=== PATIENT | male | born 1955 | race Caucasian/White ===

== ENCOUNTER → 2018-06-08 | Outpatient (CLI) | payer OTHER | LOC: FCPNEURO 06-05 23:11 | PROVIDERS: ATTEND Psychiatry & Neurology Sleep Medicine | DX: G47.31 Primary central sleep apnea (principal); G47.33 Obstructive sleep apnea (adult) (pediatric) ==

== ENCOUNTER 2018-06-09 11:00 | Emergency (ER) | payer OTHER ==
--- NOTE | 2018-06-09 11:19 | EDPHY ---
H & P Stated Complaint: Fell; landed on back;hit hit; No LOC On eliquis Time Seen by Provider: 06/09/18 11:09 HPI/ROS: CHIEF COMPLAINT: Head injury mechanical fall HISTORY OF PRESENT ILLNESS: 63-year-old male history of daily Eliquis use secondary to atrial fibrillation, arrives via private vehicle. Patient was standing on a counter, painting a wall when he stepped into a sink and fell backward impacting his occipital head against a countertop as well as impacting his left elbow/forearm and impacting his posterior ribs. No loss of consciousness. No alcohol or drug use. No midline C-spine pain. No peripheral paresthesia, weakness, numbness. No chest pain. No dyspnea. No abdominal pain or trauma. PRIMARY CARE PROVIDER: REVIEW OF SYSTEMS: 10 systems reviewed and negative with the exception of the elements mentioned in the history of present illness PAST MEDICAL/SURGICAL HISTORY: Daily Eliquis secondary to atrial fibrillation history. SOCIAL HISTORY: denies alcohol use at time of incident PHYSICAL EXAM 1) GENERAL: Well-developed, well-nourished, alert and oriented. Appears to be in no acute distress. Answering questions appropriately. 2) HEAD: Normocephalic, occipital hematoma and abrasion. No laceration 3) HEENT: Pupils equal, round, reactive to light bilaterally. Negative Horners. Nasopharynx, oropharynx, clear. No deformity or angulation of nose. No septal hematoma. No rhinorrhea. No oral trauma. Ears bilaterally with normal tympanic membranes. No hemotympanum. No fluid or blood in the external auditory canal. No raccoon eyes. No Deal sign. Teeth are normally aligned with no gross malocclusion, TMJ bilaterally nontender, facial bones nontender including the zygomatic arch, maxilla mandible. 4) NECK: No cervical collar is on. Posterior cervical spine is nontender, no stepoff, no effusion. Full range of motion which does not elicit any midline cervical spine pain, no posterior midline tenderness, no step-off. 5) LUNGS: Clear to auscultation bilaterally, no wheezes, no rhonchi, no retractions. No obvious signs of trauma. No chest wall pain. No flaring, no grunting. Moving symmetrically. No crepitus. 6) HEART: [Regular rate and rhythm, 7) ABDOMEN: No guarding, no rebound, no focal tenderness, no peritoneal signs, no signs of trauma, no ecchymosis 8) MUSCULOSKELETAL: Left upper extremity: Pain to the dorsal elbow with no visible signs of trauma. No radial head pain. Full range of motion albeit with some pain to the dorsal aspect of extremes of flexion. Proximally distally nontender. Soft compartments. Neurovascular status is normal distally with brisk pulses and brisk capillary refill. Otherwise, Moving all extremities, no focal areas of tenderness, no obvious trauma. 9) BACK: No midline vertebral tenderness, no fluctuance, no step-off, no obvious trauma, no visual or palpable abnormality. Mild pain with inspiration to the posterior lower ribs. 10) SKIN: No laceration. 11) NEURO: Awake, alert, and oriented to person, place and time. Answers questions appropriately. There were no obvious focal neurologic abnormalities. No cerebellar dysfunction. Cranial nerves 2 through to 12 intact. Normal steady gait. Upper and lower extremities bilaterally with strength 5 / 5, reflexes 2+. DIFFERENTIAL DIAGNOSIS: Not necessarily in any particular order, my differential diagnosis includes, but is not limited to, concussion, skull fracture, intraparenchymal contusion, subarachnoid, subdural and epidural hematoma. The patient understands that this diagnosis is provisional and can never be 100% accurate. - Personal History Current Tetanus Diphtheria and Acellular Pertussis (TDAP): Yes Tetanus Vaccine Date: 2013 - Medical/Surgical History Hx Asthma: No Hx Chronic Respiratory Disease: No Hx Diabetes: No Hx Cardiac Disease: Yes Hx Renal Disease: No Hx Cirrhosis: No Hx Alcoholism: No Hx HIV/AIDS: No Hx Splenectomy or Spleen Trauma: No Other PMH: afib, hypertension, colon cancer in remission, inguinal hernia repair , partial colectomy - Social History Smoking Status: Former smoker Constitutional: Initial Vital Signs Temperature (C) 36.8 C 06/09/18 11:05 Heart Rate 78 06/09/18 11:05 Respiratory Rate 16 06/09/18 11:05 Blood Pressure 147/91 H 06/09/18 11:05 O2 Sat (%) 97 06/09/18 11:05 O2 Delivery Mode Room Air Allergies/Adverse Reactions: No Known Allergies Allergy (Verified 06/09/18 11:03) Home Medications: Medication Instructions Recorded Apixaban [Eliquis] 5 mg PO BID #60 tab 07/05/14 Cyclobenzaprine [Flexeril 10 MG 10 mg PO TID #7 tab 06/09/18 (RX)] Diltiazem HCl [Diltiazem ER] 180 mg PO 06/09/18 Levothyroxine [Synthroid 125 mcg 125 mcg PO DAILY06 06/09/18 (*)] Lisinopril [Zestril 20 mg (*)] 20 mg PO 06/09/18 Medical Decision Making - Diagnostics Imaging Results: Imaging Impressions Head CT 06/09/18 11:14 Impression: 1. No acute intracranial process. 2. Subgaleal hematoma posteriorly. 3. Paranasal sinus disease. Findings and recommendations discussed with Matt Long at 1137 hour, . Chest X-Ray 06/09/18 11:15 Impression: 1. No acute cardiopulmonary process. 2. Numerous thoracic vertebral bodies demonstrate loss of height, likely chronic. There is mild irregularity of a lower thoracic vertebral body, likely T11 or T12 also favored to be chronic and partially related to summation artifact. Recommend correlation with point tenderness. Elbow X-Ray 06/09/18 11:15 Impression: Negative. No acute fracture or effusion. Images reviewed myself ED Course/Re-evaluation: 11:16 a.m.: Head CT ordered in this patient for trauma for the following indication: Anticoagulated, fall greater than 3 feet. Will also obtain x-ray of the left elbow and chest x-ray. Care of patient under supervision of secondary supervising physician Dr Celis with whom I discussed case. 12:02 p.m.: Re-evaluation. Discussed with patient's negative imaging results. He is answering questions appropriately. He remains with a nonfocal neurologic examination. Plan will be discharge home with my usual and customary head injury precautions instructions. All questions and concerns addressed by myself. He feels comfortable being discharged. Departure - Departure Disposition: Home, Routine, Self-Care Clinical Impression: Head injury due to trauma Qualifiers: Encounter type: initial encounter Qualified Code(s): S09.90XA - Unspecified injury of head, initial encounter Condition: Good Instructions: Head Injury (ED) Additional Instructions: ALTHOUGH THERE IS NO EVIDENCE OF SERIOUS HEAD INJURY AT THIS TIME, DELAYED SIGNS CAN APPEAR 24 TO 48 HOURS AFTER INJURY. PLEASE RETURN TO THE EMERGENCY DEPARTMENT (ED) IMMEDIATELY IF YOU HAVE INCREASED HEADACHE, PERSISTENT HEADACHE , VOMITING, WEAKNESS, CONFUSION OR VISUAL PROBLEMS. WE RECOMMEND THAT YOU DO NOT RESUME CONTACT SPORTS OR ACTIVITIES THAT TAKE COORDINATION OR BALANCE SUCH SKIING OR RIDING A BICYCLE UNTIL CLEARED TO DO SO BY YOUR DOCTOR OR BY A NEUROLOGIST. Referrals: Myrna Pacheco MD [Medical Doctor] - 2-3 days, call for appt. Stand Alone Forms: Work Comp Follow Up Prescriptions: Cyclobenzaprine [Flexeril 10 MG (RX)] 10 mg PO TID #7 tab
[2018-06-09 12:21] VITALS: BP 139/93
== END 2018-06-09 12:19 | disposition home or self-care (01) ==
DX: S00.03XA Contusion of scalp, initial encounter (principal); S59.902A Unspecified injury of left elbow, initial encounter; S29.9XXA Unspecified injury of thorax, initial encounter; I48.91 Unspecified atrial fibrillation; I10 Essential (primary) hypertension; J32.9 Chronic sinusitis, unspecified; C18.9 Malignant neoplasm of colon, unspecified; Z90.49 Acquired absence of other specified parts of digestive tract; Z79.01 Long term (current) use of anticoagulants; W17.89XA Other fall from one level to another, initial encounter; Y92.9 Unspecified place or not applicable; Y93.9 Activity, unspecified; Y99.9 Unspecified external cause status

== ENCOUNTER 2018-06-21 08:10 | Emergency (ER) | payer OTHER ==
--- NOTE | 2018-06-21 08:31 | EDPHY ---
HPI/HX/ROS/PE/MDM Narrative: CHIEF COMPLAINT: Constipation HPI: This patient is a 63-year-old male with history of colon cancer s/p partial colectomy. He presents today with concern for a possible bowel obstruction or other acute cause of constipation. On 05/25/18, he had a dental extraction with reduced PO intake for the next week. He has not been able to resume his normal diet since that time. On 06/04, he needed to strain to have a bowel movement, which is unusual for him following his colon resection. At that time, he had a small bowel movement that he describes as "marbles" with a small about of associated blood which he believes is related to his known internal hemorrhoids. His symptoms have persisted since then, though they seemed to improve around 06/13/18. Yesterday, he ate a large quantity of food for the first time since his dental procedure. Last night and this morning, he has felt the urge to have a bowel movement but has been unable to apart from some continued occasional "marbles". Given his history of colorectal cancer and subsequent surgery, he is concerned for obstruction. He does not currently have a local PCP or graphic editor. His most recent colonoscopy was four years ago. He denies abdominal pain, fever, melena, nausea, vomiting, urinary complaints, or other associated symptoms. REVIEW OF SYSTEMS: A comprehensive 10 system review of systems is otherwise negative aside from elements mentioned in the history of present illness and medical decision making. PMH: Atrial fibrillation. Hypertension. History of colon cancer (in remission) s /p partial colectomy. Inguinal hernia repair. SOCIAL HISTORY: Staying with daughter, recently moved from [facility]. PHYSICAL EXAM: General:Patient is alert, in no acute distress. ENT:Eyes are normal to inspection. ENT inspection normal. Neck: Normal inspection. Full range of motion. Respiratory:No respiratory distress. Breath sounds normal bilaterally. Cardiovascular: Regular rate and rhythm. Strong peripheral pulses. Normal cap refill. Abdomen:The abdomen is nontender to palpation. There are no peritoneal signs. There are normal bowel sounds. Back: Normal to inspection. No tenderness to palpation. Skin: Normal color. No rash. Warm and dry. Extremities: Normal appearance. Full range of motion. Neuro: Oriented x3. Normal motor function. Normal sensory function. ED Course: 63 year old male with history of colorectal cancer s/p partial colon resection presents with two week history of constipation. He has had small bowel movements during this time. Exam largely unremarkable, vitals are within normal limits. Plan for abdominal x-ray for further evaluation. 8:51 Reviewed x-ray. Evidence of constipation. This patient may have some stenosis secondary to his history of colon cancer. There is no evidence of acute obstruction at this time. He is not systemically ill at this time. He denies abdominal pain or vomiting. He has noted some blood in his stool but states this is consistent with his known internal hemorrhoids and denies melena. 8:55 Reassessed. Discussed imaging results. The patient notes he has tried prune juice at home without significant relief. We discussed further measures including Fleet enema. He refused an enema here in the emergency department and agrees to try more aggressive home measures. He will try a Fleet enema followed by magnesium citrate at home. If he does not have relief following these treatments, he agrees to return to the emergency department for further evaluation. Plan to discharge home in good condition. Referrals to local primary care provider and graphic editor were provided. Follow up and return precautions discussed. The patient understands and is comfortable with this plan. MDM: This patient presents with significant constipation in the setting of prior rectal CA and partial colectomy. I cannot rule out stenosis or partial mechanical obstruction at this time, but patient is passing some stool and has not tried anything for therapy other than prune juice. He is agreement with the plan for trying enema/laxative to see if he can get relief prior to undergoing any additional testing or manual evacuation. - Data Points Imaging Results: Imaging Impressions Abdomen X-Ray 06/21/18 08:32 Impression: Constipation. If there is concern for an anastomotic stricture, then consider a Gastrografin enema. Imaging: I viewed and interpreted images myself General Time Seen by Provider: 06/21/18 08:25 Initial Vital Signs: Initial Vital Signs Temperature (C) 37 C 06/21/18 08:13 Heart Rate 82 06/21/18 08:13 Respiratory Rate 18 06/21/18 08:13 Blood Pressure 181/97 H 06/21/18 08:13 O2 Sat (%) 94 06/21/18 08:13 O2 Delivery Mode Room Air Allergies/Adverse Reactions: No Known Allergies Allergy (Verified 06/21/18 08:12) Home Medications: Medication Instructions Recorded Apixaban [Eliquis] 5 mg PO BID #60 tab 07/05/14 Cyclobenzaprine [Flexeril 10 MG 10 mg PO TID #7 tab 06/09/18 (RX)] Diltiazem HCl [Diltiazem ER] 180 mg PO 06/09/18 Levothyroxine [Synthroid 125 mcg 125 mcg PO DAILY06 06/09/18 (*)] Lisinopril [Zestril 20 mg (*)] 20 mg PO 06/09/18 Departure - Departure Disposition: Home, Routine, Self-Care Clinical Impression: Constipation Condition: Good Instructions: Constipation (ED), High Fiber Diet (ED), Fleet Enema (ED) Additional Instructions: Take fleet enema at home as directed. If this works, please take one half bottle of magnesium citrate, available over the counter, as directed. If the enema does not work, please return to the emergency department for further evaluation. We have referred you to a local graphic editor and local primary care provider. Please follow up within one week. Return to the emergency department for severe pain, blood in your stool or dark , tarry stools, vomiting, fever, or other worsening of condition. Referrals: Frances Hdz MD [Medical Doctor] - As per Instructions Shantal Jimenes MD [place] [place] - As per Instructions Report Scribed for: Ac Celis Report Scribed by: Fatoumata Moreno Date of Report: 06/21/18 Time of Report: 08:59 Physician Review and Approval Statement: Portions of this note were transcribed by an ED scribe. I personally performed the history, physical exam, and medical decision making; and confirm the accuracy of the information in the transcribed note.
[2018-06-21 09:21] VITALS: BP 167/97
== END 2018-06-21 09:21 | disposition home or self-care (01) ==
DX: K59.00 Constipation, unspecified (principal); Z85.038 Personal history of other malignant neoplasm of large intestine

== ENCOUNTER → 2018-07-29 | Outpatient (CLI) | payer OTHER | LOC: FCPNEURO 20:00 | PROVIDERS: ATTEND Psychiatry & Neurology Sleep Medicine | DX: G47.31 Primary central sleep apnea (principal) ==

== ENCOUNTER → 2018-09-25 | Outpatient (CLI) | payer OTHER | LOC: FCPNEURO 20:00 | PROVIDERS: ATTEND Psychiatry & Neurology Sleep Medicine | DX: G47.31 Primary central sleep apnea (principal); G47.61 Periodic limb movement disorder ==